=== PATIENT | male | born 2000 | race Two or more races ===

== ENCOUNTER 2020-10-31 10:28 | Emergency (ER) | payer OTHER ==
[~2020-10-31] VITALS: Ht 185.4 cm; Wt 79.4 kg
== END 2020-10-31 12:02 | disposition home or self-care (01) ==
LOC: ED 10:28
DX: S61.411A Laceration without foreign body of right hand, initial encounter (principal); W22.8XXA Striking against or struck by other objects, initial encounter
CPT/HCPCS: 12001; 73130; 99283-25